=== PATIENT | male | born 1955 | race Hispanic/Latino ===

== ENCOUNTER 2019-09-06 09:27 | Outpatient (CLI) | payer MEDICARE, BC ==
--- NOTE | 2019-09-06 12:00 | MRI ---
MRI OF THE LUMBAR SPINE PERFORMED WITHOUT CONTRAST ENHANCEMENT: HISTORY: Chronic low back pain and bilateral lower extremity weakness. FINDINGS: The vertebral bodies are normal in height. Generalized disk desiccation changes are seen. There is very mild disk narrowing at L3-4, L4-5, and L5-S1. There is no significant periaortic adenopathy and the visualized portions of the kidneys appear unremarkable. T12-L1: Unremarkable. L1-2: There is a left lateral disk protrusion at this level. This is causing some borderline narrow ing to the left foramen. L2-3: No canal or foraminal stenosis at this level. L3-4: Disk bulge with facet changes associated with a mild degree of canal narrowing. There is mode rate bilateral foraminal narrowing. L4-5: Moderate canal stenosis with disk bulge, facet, and ligamentous hypertrophic changes are seen. There is severe bilateral foraminal narrowing more pronounced on the right. L5-S1: No significant canal stenosis. There is mild left-sided foraminal narrowing. IMPRESSION: Areas of canal and foraminal narrowing as described above. POS: JEZ
--- NOTE | 2019-09-06 12:10 | RAD ---
LUMBAR SPINE SERIES 4 VIEWS INCLUDING FLEXION AND EXTENSION: HISTORY: Chronic low back pain and bilateral lower extremity weakness. FINDINGS: Vertebral bodies maintain normal height. Mild disk narrowing is seen at the L3-4, L5-, and L5-S1 lev els. Pedicles are intact. Moderate degenerative facet changes are seen. No abnormal motion with fl exion or extension. Extensive atherosclerotic change of the aorta is noted. IMPRESSION: Moderate arthritic changes of the spine. POS: JEZ
== END 2019-09-06 09:28 | disposition home or self-care (01) ==
LOC: TBSIIMAG 09:27
PROVIDERS: ATTEND Neurological Surgery
DX: M48.062 Spinal stenosis, lumbar region with neurogenic claudication (principal); M54.5 Low back pain; M47.816 Spondylosis without myelopathy or radiculopathy, lumbar region
CPT/HCPCS: 72120; 72148

== ENCOUNTER 2019-11-25 07:10 | Outpatient (CLI) | payer MEDICARE, BC ==
[2019-11-25 14:44] LABS: Hemoglobin 14.5 g/dL (14.0-18.0); Mean Corpuscular HGB CONC 32.8 g/dL (32.0-36.0); Mean Corpuscular Hemoglobin 32.3 pg (27.0-31.0); Mean Corpuscular Volume 98.4 fL (78.0-98.0); Mean Platelet Volume 7.8 fL (7.4-10.4); Platelet Count 308 thou/uL (130-400); RBC Distribution Width 11.5 % (11.5-14.5); Red Blood Cell (RBC) Count 4.48 mill/uL (4.70-6.10); White Blood Cell (WBC) Count 7.8 thou/uL (4.8-10.8)
[2019-11-25 15:03] LABS: Anion Gap 14 mmol/L (10-20); BUN (Urea Nitrogen) 9 mg/dL (8.4-25.7); Calc. Creatinine Clearance 0 mL/min (70-130); Carbon Dioxide 26 mmol/L (23-31); Chloride 101 mmol/L (98-107); Estimated GFR-MDRD 89; Glucose 96 mg/dL (80-115); Sodium 137 mmol/L (136-145)
[2019-11-26 17:09] LABS: SARS-CoV-2 MS2 Positive; SARS-CoV-2 N Gene Negative; SARS-CoV-2 S Gene Negative; SARS-CoV-2 orf1ab Negative
--- NOTE | 2019-12-14 17:51 | EKG ---
Test Reason : Blood Pressure : / mmHG Vent. Rate : 074 BPM Atrial Rate : 074 BPM P-R Int : 186 ms QRS Dur : 082 ms QT Int : 366 ms P-R-T Axes : 059 049 029 degrees QTc Int : 406 ms Normal sinus rhythm Normal ECG No previous ECGs available Confirmed by SELAM MACK (2) on 12/14/2019 5:51:14 PM Referred By: Confirmed By:SELAM MACK
== END 2019-11-25 07:11 | disposition home or self-care (01) ==
LOC: LABBT 07:10
PROVIDERS: ATTEND Neurological Surgery
DX: Z01.812 Encounter for preprocedural laboratory examination (principal); Z11.59 Encounter for screening for other viral diseases; M54.16 Radiculopathy, lumbar region
CPT/HCPCS: 80048; 85027; 87635; U0003

== ENCOUNTER 2019-11-30 06:05 | Day surgery (SDC) | payer MEDICARE, BC ==
[2019-11-25 13:37] VITALS: BMI 33.3
[2019-11-30] MEDS ORDERED: Fentanyl 100 MCG/2 ML VIAL ONE ×4 (07:03→09:35)
[2019-11-30] MEDS ORDERED: Midazolam HCl 2 mg/2 ml Vial ONE (07:05)
--- NOTE | 2019-11-30 09:12 | OP ---
DATE OF PROCEDURE: 11/30/2019 [employer]OR TEAM MEMBER: Charu Abreu PA-C PROCEDURES PERFORMED: Right L4-5 laminectomy, facetectomy, foraminotomy, and diskectomy; interbody arthrodesis; intervertebral biomechanical device; local morselized autograft; demineralized bone matrix; posterolateral arthrodesis; pedicle screw instrumentation right L4-5. DESCRIPTION OF PROCEDURE: The patient was brought up to the operating room and intubated. He was rolled in a prone position on gel-filled chest rolls. An incision was made exposing L4 and L5, and the level was confirmed by x-ray. We performed a right L4-5 laminectomy, facetectomy, foraminotomy, and diskectomy, completely decompressed right L4. Next, the disk itself was incised and debrided and the bony endplates decorticated for the purpose of arthrodesis. An appropriate-sized intervertebral biomechanical PEEK device was brought into the field, filled with demineralized bone matrix and local morselized autograft, and tapped in place securely at L4-5. Next, pedicle screws were placed at right L4 and right L5 using lateral fluoroscopic guidance and the position was confirmed by x-ray. Wolf was secured between the screws, connected by nuts, which were final tightened. The wound was extensively irrigated. MAC hemostasis was secured. A combination of demineralized bone matrix and local morselized autograft was laid over the lamina and posterolateral surfaces for the purpose of arthrodesis. Vancomycin powder was applied, and the wound was then closed in anatomic layers. Job ID: [id number]
[2019-11-30] MEDS ORDERED: Tamsulosin HCl 0.4 MG CAP ONE (09:30)
[2019-11-30] MEDS ORDERED: Morphine 4 MG/ML VIAL ONE ×2 (09:56→11:14)
[2019-11-30] MEDS ORDERED: Morphine 2 MG/ML SYRINGE ONE ×3 (10:13→10:53)
[2019-11-30] MEDS ORDERED: PROPOFOL 200 MG/20 ML VIAL ONE (11:11)
[2019-11-30] MEDS ORDERED: Metoclopramide HCl 10 MG/2 ML VIAL ONE (11:11)
[2019-11-30] MEDS ORDERED: Albuterol Sulfate HFA (OR ONLY) ONE (11:11)
[2019-11-30] MEDS ORDERED: Dexamethasone 20 MG/5 ML VIAL ONE (11:11)
[2019-11-30] MEDS ORDERED: PHENYLEPHRINE-NS 100 MCG/ML 10 ML SYRINGE ONE (11:11)
[2019-11-30] MEDS ORDERED: Lidocaine 1% PF 5 ML VIAL ONE (11:11)
[2019-11-30] MEDS ORDERED: Rocuronium Bromide 10 MG/ML (10ML VIAL) ONE (11:11)
[2019-11-30] MEDS ORDERED: Ondansetron PF 4 MG/2 ML Vial ONE (11:11)
[2019-11-30] MEDS ORDERED: Glycopyrrolate 0.2 MG/ML 5 ML SYRINGE ONE (11:11)
[2019-11-30] MEDS ORDERED: Promethazine HCl 25 MG/ML VIAL ONE (11:15)
[2019-11-30] MEDS ORDERED: HYDROcodone/Acetaminophen 5/325 mg Tablet ONE (13:26)
== END 2019-11-30 14:10 | disposition home or self-care (01) ==
LOC: SDC 06:05
PROVIDERS: ATTEND Neurological Surgery
PROC: 0SG00AJ Fusion of Lumbar Vertebral Joint with Interbody Fusion Device, Posterior Approach, Anterior Column, Open Approach (ICD-10-PCS; principal; 2019-11-30)
PROC: 0ST20ZZ Resection of Lumbar Vertebral Disc, Open Approach (ICD-10-PCS; 2019-11-30)
DX: M51.16 Intervertebral disc disorders with radiculopathy, lumbar region (principal); M48.061 Spinal stenosis, lumbar region without neurogenic claudication; I10 Essential (primary) hypertension; E78.5 Hyperlipidemia, unspecified; Z79.82 Long term (current) use of aspirin; Z79.899 Other long term (current) drug therapy; Z87.891 Personal history of nicotine dependence; K21.9 Gastro-esophageal reflux disease without esophagitis
CPT/HCPCS: 20930; 20936; 22633; 22853; 76000; C1713 ×2; C1768; J0690; J1100; J2001; J2250; J2270; J2405; J2550; J2704; J2765; J3010; J3370

== ENCOUNTER 2022-05-22 14:30 | Outpatient (CLI) | payer MEDICARE, BC | END 2022-05-22 14:31 | disposition home or self-care (01) | LOC: BICMAMMO 14:30 | PROVIDERS: ATTEND Neurological Surgery | DX: M81.0 Age-related osteoporosis without current pathological fracture (principal) | CPT/HCPCS: 77080 ==